=== PATIENT | female | born 1950 | race Hispanic/Latino ===

== ENCOUNTER 2017-06-19 07:57 | Outpatient (CLI) | payer OTHER ==
--- NOTE | 2017-06-19 16:37 | XRay Report ---
XRAY BILATERAL KNEE THREE VIEWS EACH: 06/19/17 07:57:00 CLINICAL: Pain. FINDINGS: Right: No fracture or dislocation. Mild medial joint space narrowing. Patellofemoral joint osteoarthritis with narrowing of the joint space and large osteophytes. No joint effusion. Normal soft tissues. Left: No fracture or dislocation. Medial joint space narrowing with moderate sized medial and lateral osteophytes. Patellofemoral joint space narrowing with large osteophytes. No joint effusion. Normal soft tissues. IMPRESSION: Bilateral osteoarthritis with the greatest involvement of the bilateral patellofemoral joints and both medial and lateral knee joint spaces.
== END 2017-06-19 07:58 | disposition home or self-care (01) ==
LOC: XRAY 07:57
PROVIDERS: ATTEND Internal Medicine
DX: M17.0 Bilateral primary osteoarthritis of knee (principal)

== ENCOUNTER 2018-05-14 08:50 | Outpatient (CLI) | payer MEDICARE ==
--- NOTE | 2018-05-14 11:26 | Mammography Report ---
BONE DEXA:05/14/18 08:50:00 CLINICAL: Postmenopausal. No comparison. TECHNIQUE: Two site bone DEXA performed on an Hologic scanner. FINDINGS: The average BMD of the lumbar spine L1-L4 is 1.138g/cm squared with a T-score of +0.8 and a Z-score of +2.6. The average BMD of the left hip is 0.827g/cm squared with a T-score of -0.9 and a Z-score of +0.3. However, the femoral neck BMD is 0.721g/cm squared with a T score of -1.2 and Z score of +0.4 IMPRESSION: 1. WHO classification: Normal with average fracture risk based on lumbar spine measurements. 2. WHO classification: Osteopenia with increased fracture risk based on left femoral neck measurements. RECOMMENDATION: Clinical correlation and routine screening. DEFINITIONS: BMD = Bone Mineral Density T-score = BMD related to mean peak bone mass of young adult (mean expressed in Standard Deviation) Z-score = Age matched BMD expressed in SD World Health Organization (WHO) Diagnostic Criteria Normal T-score > -1 SD Osteopenia T-score between -1 and -2.4 SD Osteoporosis T-score -2.5 SD or below NOTE: BMD is not the only risk factor for fracture. One should also consider factors such as the patient's age, risk of falling, previous osteoporotic fracture, family history of osteoporotic fractures, current smoker, and low body weight. Z-scores are not calculated if >80 years of age.
--- NOTE | 2018-05-14 16:28 | Mammography Report ---
BILATERAL DIGITAL SCREENING MAMMOGRAM with CAD: 05/14/18 08:50:00 CLINICAL: Routine screening.Previous left benign biopsy. COMPARISON:None available. However, she indicated that she had had a mammogram in 2016 at [facility]. FINDINGS: There are scattered areas of fibroglandular density.Minimal left upper outer postsurgical scar. An oval relatively dense 5 mm left inner nodule requires comparison with a prior mammogram or additional imaging. No architectural distortion or suspicious calcifications. The left breast is negative. IMPRESSION: Left nodule requiring further evaluation. BI-RADS CATEGORY: 0 -- Additional Evaluation Required RECOMMENDATION: Comparison with a previous mammogram. We will attempt to obtain a prior mammogram for comparison. If we do not obtain a prior mammogram within 30 days, a revised report will be issued recommending a recall for additional imaging. Please be advised that the patient should not schedule an appointment for return until adequate time (at least 2 weeks) has passed for us to obtain the prior mammogram. ACR BI-RADS MAMMOGRAPHIC CODES: 0 = Needs additional imaging evaluation; 1 = Negative; 2 = Benign; 3 = Probably benign; 4 = Suspicious; 5 = Malignant; 6 = Known biopsy-proven malignancy COMMENT: 1. Dense breast tissue, i.e., adenosis, fibrocystic changes, etc., may obscure an underlying neoplasm. 2. Approximately 10% of cancers are not detected with mammography. 3. A negative mammography report should not delay biopsy if a clinically suspicious mass is present. COMMENT: Patient follow-up letters are generated via our [employer] application.
== END 2018-05-14 08:51 | disposition home or self-care (01) ==
LOC: SPVWC 08:50
PROVIDERS: ATTEND Internal Medicine
DX: Z12.31 Encounter for screening mammogram for malignant neoplasm of breast (principal); Z13.820 Encounter for screening for osteoporosis; M85.88 Other specified disorders of bone density and structure, other site; F17.210 Nicotine dependence, cigarettes, uncomplicated; Z78.0 Asymptomatic menopausal state
CPT/HCPCS: 77067; 77080

== ENCOUNTER 2018-05-30 09:14 | Outpatient (CLI) | payer MEDICARE ==
--- NOTE | 2018-05-30 09:58 | Mammography Report ---
Left mammogram: Call back for left asymmetry. Additional CC images with spot compression and roll CC images confirm the presence of a 4 mm circumscribed nodule in the medial breast. This nodule cannot be unequivocally identified on the additional lateral compression image but is identified on the initial screening image. We have been unable to secure her prior exam. Following discussions with the patient she is going to attempt to bring her prior exam to us before any additional evaluation such as ultrasound is performed. Impression: Persistent left asymmetry. Recommendation: Additional recommendation following receipt of prior mammogram. BI-RADS CATEGORY: 0 = Needs additional imaging evaluation ACR BI-RADS MAMMOGRAPHIC CODES: 0 = Needs additional imaging evaluation; 1 = Negative; 2 = Benign; 3 = Probably benign; 4 = Suspicious; 5 = Malignant; 6 = Known biopsy-proven malignancy COMMENT: 1. Dense breast tissue, i.e., adenosis, fibrocystic changes, etc., may obscure an underlying neoplasm. 2. Approximately 10% of cancers are not detected with mammography. 3. A negative mammography report should not delay biopsy if a clinically suspicious mass is present.
== END 2018-05-30 09:15 | disposition home or self-care (01) ==
LOC: SPVWC 09:14
PROVIDERS: ATTEND Internal Medicine
DX: R92.2 Inconclusive mammogram (principal)

== ENCOUNTER 2020-10-07 06:53 | Day surgery (SDC) | payer MEDICARE ==
[~2020-10-07 06:53] MED LIST: BACTERIOSTATIC SODIUM CHLORIDE 0.9% 30 ML VIAL INFILTRATI ONE; SODIUM CHLORIDE 0.9% 1000 ML 1,000 ML IV SCH
--- NOTE | 2020-10-07 07:30 | Anesthesia Consultation ---
Anesthesia Consult and Med Hx Date of service: 10/07/20 - Airway Anesthetic Teeth Evaluation: Good (#26-27 are somewhat loose) ROM Head & Neck: Adequate Mental/Hyoid Distance: Adequate Mallampati Class: Class III Intubation Access Assessment: Possibly Difficult - Pre-Operative Health Status ASA Pre-Surgery Classification: ASA2 Proposed Anesthetic Plan: MAC - Pulmonary Hx Smoking: Yes - Cardiovascular System Hx Hypertension: Yes - Central Nervous System Hx Psychiatric Problems: Yes (depression) - Gastrointestinal Hx Gastroesophageal Reflux Disease: Yes - Other Systems Hx Obesity: Yes (BMI 34.5)
--- NOTE | 2020-10-07 07:31 | Anesthesia Day of Surgery ---
Anesthesia Day of Surgery - Day of Surgery Patient Examined: Yes Patient H&P Reviewed: Yes Patient is NPO: Yes
[2020-10-07] MEDS ORDERED: propofoL 200 MG/20 ML VIAL IV ONE ×2 (07:40→08:41)
[2020-10-07] MEDS ORDERED: LIDOCAINE MPF (2%) 20 MG/1 ML VIAL 5 ML ONE (07:41)
[2020-10-07] MEDS ORDERED: WATER FOR IRRIG STERILE 1,000 ML BOTTLE ONE (08:30)
[2020-10-07] MEDS ORDERED: WATER FOR IRRIG STERILE 250 ML BOTTLE IR ONE (08:30)
[2020-10-07] MEDS ORDERED: ONDANSETRON 4 MG/2 ML INJ ONE (08:56)
--- NOTE | 2020-10-07 09:08 | Procedure Note ---
Date of procedure: 10/07/20 Pre-op diagnosis: Colon Polyp Screening/ H/O Colon Polyps/ F/H/O Cancer (mother- Breast Cancer Post-op diagnosis: other (Two Small Colon Polyps (possibly Hyperplastic, in the Recto-Sigmoid and Sigmoid)/ Mild to moderate Internal Hemorrhoids/ Normal Ileal Mucosa/ No Diverticular Disease noted) Procedure: Colonoscopy with Cold Biopsy Anesthesia: MAC Surgeon: DEBORAH BLOCK Estimated blood loss: minimal Pathology: list Specimen disposition: to lab Condition: stable Disposition: same day (Avoid aspirin and NSAID for 54 days; otherwise resume home medication and follow up in 1 to 2 weeks ([phone]))
--- NOTE | 2020-10-07 09:30 | Operative Report ---
INDICATIONS: This is a 69-year-old female who has had a prior history of colon polyps. Last colonoscopy was several years ago and procedure was done. She does have a family history of cancer, the patient's mother had breast cancer. Colonoscopy was done to make sure that there was not any recurrence of polyps. DESCRIPTION OF PROCEDURE: The procedure was done after getting informed consent with MAC anesthesia. Initial rectal exam was unremarkable. Instrument was passed through the rectum onto the cecum, which was identified by the ileocecal valve and the appendiceal orifice. Visualization was fair to good. The terminal ileum was intubated, showed normal mucosa. The rectum was also examined on the retroverted view. No additional pathology was noted. Cecum, ascending colon, transverse colon, and descending colon showed normal mucosa. In the sigmoid, there was a 7 mm flat polyp noted, possibly hyperplastic that was removed by cold biopsy. Photodocumentation was obtained. There was minimal bleeding from the biopsy site. In addition, there was a similar small polyp noted in the rectosigmoid area. Both appeared to be hyperplastic in type that was also removed by cold biopsy again with minimal bleeding. The rectum showed [id number] internal hemorrhoid on the retroverted view. ASSESSMENT: History of colon polyps. Two small possibly hyperplastic polyps removed, one from the sigmoid, one from the rectosigmoid, [id number] internal hemorrhoids noted. No diverticula. Normal ileal mucosa. There was minimal bleeding from the biopsy sites. No complications associated with the procedure. The patient will be asked to avoid aspirin and aspirin-related products for a few days. Otherwise, resume home medication and follow up in the office in 1-2 weeks' time. The procedure was done in the GI lab with the assistance of the GI lab team, which included Aislinn MATSON; Luis zamorano and with assistance of anesthesia. JOB# [id number] MANUELITO/TRAVIS
[2020-10-07 10:08] VITALS: BP 114/56
--- NOTE | 2020-10-07 10:27 | Post Anesthesia Evaluation ---
- Post Anesthesia Evaluation Patient Participated: Yes Airway Patent: Yes Stable Respiratory Function: Yes Nausea/Vomiting: No Temp > 96.8F: Yes Pain Manageable: Yes Adequeate Hydration: Yes Anesthesia Complications: No Block Receding Appropriately: Not Applicable Patient on Ventilator: No
== END 2020-10-07 10:00 | disposition home or self-care (01) ==
LOC: GIO 06:53
DX: Z12.11 Encounter for screening for malignant neoplasm of colon (principal); K63.5 Polyp of colon; K64.8 Other hemorrhoids; F17.210 Nicotine dependence, cigarettes, uncomplicated; E78.00 Pure hypercholesterolemia, unspecified; I10 Essential (primary) hypertension; K21.9 Gastro-esophageal reflux disease without esophagitis; E66.9 Obesity, unspecified; F32.9 Major depressive disorder, single episode, unspecified; Z79.899 Other long term (current) drug therapy; Z86.010 Personal history of colon polyps; Z80.3 Family history of malignant neoplasm of breast; Z68.34 Body mass index [BMI] 34.0-34.9, adult
CPT/HCPCS: 45380; 88305; J2405; J2704; J7030